=== PATIENT | male | born 1945 | race African-American/Black ===

== ENCOUNTER 2019-01-11 10:08 | Emergency (ER) | payer OTHER, MEDICARE ==
[2019-01-11 10:19] VITALS: BP 183/80; PULSE 68; TEMP 98.1; BMI 27.8
[2019-01-11] MEDS ORDERED: DEXAMETHASONE LIQUID 0.5 MG/5 ML PO ONE (11:18)
[2019-01-11] MEDS ORDERED: DEXAMETHASONE SOD PHOSPHATE 10 MG/1 ML VIAL ONE (11:22)
--- NOTE | 2019-01-11 12:04 | PDOC ---
History of Present Illness - General Chief Complaint: Edema Stated Complaint: R SIDE FACE SWOLLEN Time Seen by Provider: 01/11/19 11:06 History Source: Patient Exam Limitations: Clinical Condition - History of Present Illness Initial Comments: 01/11/19 12:00 With history of hypertension on lisinopril and metoprolol, diabetes present with complaint of right-sided facial swelling, swelling right side neck lymph nodes and tonsils upon wake this morning. Patient denies any pain to face or neck. Denies any throat pain. Denies shortness of breath, fever, chills, choking sensation. Denies any other medication. Patient reported started using CBD topical cream 2 days ago for rash to the skin of the right leg. 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) HTN: Yes (DX 2002) Hypercholesterolemia: Yes (DX 2010) Liver Disease: No Seizures: No Thyroid Disease: No - Surgical History Abdominal Surgery: Yes (COLON RESECTION/2012) Appendectomy: No Cardiac Surgery: No Cholecystectomy: No Lung Surgery: No Neurologic Surgery: No Orthopedic Surgery: No - Psycho Social/Smoking Cessation Hx Smoking History: Never smoked Have you smoked in the past 12 months: No Number of Cigarettes Smoked Daily: 0 If you are a former smoker, when did you quit?: 1993 Hx Alcohol Use: Yes (RARE) Drug/Substance Use Hx: No Substance Use Type: Alcohol Hx Substance Use Treatment: No Review of Systems - Review of Systems Able to Perform ROS?: Yes Is the patient limited Hebrew proficient: No Constitutional: No: Chills, Fever, Malaise HEENTM: Yes: Symptoms Reported, See HPI, Other (righ side facial swelling). No : Eye Pain, Blurred Vision, Tearing, Recent change in vision, Double Vision, Cataracts, Ear Pain, Ocular Prothesis, Ear Discharge, Nose Pain, Nose Congestion , Tinnitus, Nose Bleeding, Hearing Loss, Throat Pain, Throat Swelling, Mouth Pain, Dental Problems, Difficulty Swallowing, Mouth Swelling Respiratory: No: Symptoms reported, See HPI, Cough, Orthopnea, Shortness of Breath, SOB with Exertion, SOB at Rest, Stridor, Wheezing, Productive cough, Hemoptysis, Other Cardiac (ROS): No: Symptoms Reported, See HPI, Chest Pain, Edema, Irregular Heart Rate, Lightheadedness, Palpitations, Syncope, Chest Tightness, Other ABD/GI: No: Nausea, Vomiting : No: Symptoms Reported Musculoskeletal: No: Symptoms Reported Integumentary: Yes: Symptoms Reported, Other (right side facial swelling) Neurological: No: Symptoms reported, Seizure, Tremors, Dizziness Hematologic/Lymphatic: Yes: Symptoms Reported, See HPI, Lymph Node Abnormalities (right anterior lymph node swelling) All Other Systems: Reviewed and Negative *Physical Exam - Vital Signs Last Vital Signs Temp Pulse Resp BP Pulse Ox 98.1 F 68 18 183/80 H 99 01/11/19 10:15 01/11/19 10:15 01/11/19 10:15 01/11/19 10:15 01/11/19 10:15 - Physical Exam Comments: 01/11/19 12:05 GENERAL: Well developed, well nourished. Awake and alert. No acute distress. HEENT: Moderately enlarged right tonsils. Normocephalic, atraumatic. PERRLA, EOMI. No conjunctival pallor. Sclera are non-icteric. Moist mucous membranes. Oropharynx is clear. NECK: Anterior cervical lymphadenitis. Full ROM. CARDIOVASCULAR: Regular rate and rhythm. No murmurs, rubs, or gallops. Distal pulses are 2+ and symmetric. PULMONARY: No evidence of respiratory distress. Lungs clear to auscultation bilaterally. No wheezing, rales or rhonchi. ABDOMINAL: Soft. Non-tender. Non-distended. No rebound or guarding. No organomegaly. Normoactive bowel sounds. MUSCULOSKELETAL Normal range of motion at all joints. SKIN: Warm and dry. Normal capillary refill. Mild swelling to right side of face and right lower chin over right parotid gland. no palpaple calculi. NEUROLOGICAL: Alert, awake, appropriate. Gait is normal without ataxia. PSYCHIATRIC: Cooperative. Good eye contact. Appropriate mood General Appearance: Yes: Nourished, Appropriately Dressed. No: Apparent Distress ED Treatment Course - Medications Given in the ED: ED Medications Discontinued Medications Generic Name Dose Route Start Last Admin Trade Name Abhilash PRN Reason Stop Dose Admin Dexamethasone 10 mg 01/11/19 11:18 01/11/19 11:25 Decadron Liquid - PO 01/11/19 11:19 10 mg ONCE ONE Administration Medical Decision Making - Medical Decision Making 01/11/19 12:01 With history of hypertension on lisinopril and metoprolol, diabetes present with complaint of right-sided facial swelling, swelling right side neck lymph nodes and tonsils upon wake this morning. Patient denies any pain to face or neck. Denies any throat pain. Denies shortness of breath, fever, chills, choking sensation. Denies any other medication. Patient reported started using CBD topical cream 2 days ago for rash to the skin of the right leg. Denies any other symptoms Exam significant for mild swelling to right side of face and chin with right anterior cervical lymphadenopathy. Moderate swelling to right tonsils. Airway patent. Patient afebrile. No gum swelling or tooth tenderness. No palpable lesion to swallow declined. Patient reported having similar episode 2 years ago which resolved spontaneously. Symptoms likely reaction to symptom patient came in contact with or lymphadenitis and tonsillitis causing facial swelling. Rapid strep ordered to rule out strep pharyngitis. Decadron 10 mg by mouth given. Reassess after half an hour 01/11/19 12:43 rapid strep negative. Patient with mild swelling of right parotid gland. Symptoms likely sialadenitis. Patient stable for discharge to do lemon drops candy to help stimulate salivary production to open blocked duct. Plan discussed with patient and patient agrees with plan. Patient advised to apply warm compress and massage salivary gland. referred for ENT given for persistent symptoms Discharge - Discharge Information Problems reviewed: Yes Clinical Impression/Diagnosis: Sialadenitis, Salivary disorder Condition: Stable Disposition: HOME - Admission No - Follow up/Referral Referrals: Nelson Juarez MD [Staff Physician] - - Patient Discharge Instructions Patient Printed Discharge Instructions: Parotitis Additional Instructions: Your swelling is likely caused by blocked salivary gland. use lemon drop candy or losenges to help open up salivary gland. Apply warm compress 2-3times a day to right side of face and massage area of swelling to help release blocked duct. Follow-up with referred ENT if symptoms persist for more than 4 days - Post Discharge Activity
== END 2019-01-11 12:25 | disposition home or self-care (01) ==
LOC: JER 10:08
DX: K11.20 Sialoadenitis, unspecified (principal); I10 Essential (primary) hypertension; E11.9 Type 2 diabetes mellitus without complications; E78.00 Pure hypercholesterolemia, unspecified; Z85.46 Personal history of malignant neoplasm of prostate; Z85.038 Personal history of other malignant neoplasm of large intestine
CPT/HCPCS: 87070; 87880; 99282-25

== ENCOUNTER 2021-09-02 06:41 | Emergency (ER) | payer OTHER, MEDICARE ==
[2021-09-02 06:49] VITALS: TEMP 98.1; BMI 22.3
[2021-09-02] MEDS ORDERED: methylPREDNISolone NA SUCC 125 MG/2 ML VIAL IVPUSH ONE (06:51)
[2021-09-02] MEDS ORDERED: FAMOTIDINE 20 MG/50 ML IVPB 20 MG/50 ML MG IVPB ONE (06:51)
[2021-09-02] MEDS ORDERED: FAMOTIDINE 10 MG/ML VIAL IVPB ONE (06:53)
[2021-09-02] MEDS ORDERED: methylPREDNISolone NA SUCC 125 MG/2 ML VIAL ONE (06:53)
[2021-09-02 10:13] VITALS: BP 147/76; PULSE 74
== END 2021-09-02 11:55 | disposition home or self-care (01) ==
LOC: JER 06:41
PROC: 3E033NZ Introduction of Analgesics, Hypnotics, Sedatives into Peripheral Vein, Percutaneous Approach (ICD-10-PCS; principal; 2021-09-02)
PROC: 3E033GC Introduction of Other Therapeutic Substance into Peripheral Vein, Percutaneous Approach (ICD-10-PCS; 2021-09-02)
PROC: 3E033GC Introduction of Other Therapeutic Substance into Peripheral Vein, Percutaneous Approach (ICD-10-PCS; 2021-09-02)
DX: T78.3XXA Angioneurotic edema, initial encounter (principal)
CPT/HCPCS: 93005; 93010; 99284-25